=== PATIENT | female | born 1940 | race Two or more races ===

== ENCOUNTER 2018-06-08 11:11 | Outpatient (CLI) | payer OTHER | END 2018-06-08 11:31 | disposition home or self-care (01) | LOC: RAD 501 11:11 | DX: I11.9 Hypertensive heart disease without heart failure (principal); I87.2 Venous insufficiency (chronic) (peripheral); E03.8 Other specified hypothyroidism; E11.59 Type 2 diabetes mellitus with other circulatory complications; E78.00 Pure hypercholesterolemia, unspecified; N18.1 Chronic kidney disease, stage 1 ==

== ENCOUNTER 2018-11-12 08:59 | Outpatient (CLI) | payer OTHER | END 2018-11-12 09:05 | disposition home or self-care (01) | LOC: LAB 08:59 | DX: E03.8 Other specified hypothyroidism (principal); I13.10 Hypertensive heart and chronic kidney disease without heart failure, with stage 1 through stage 4 chronic kidney disease, or unspecified chronic kidney disease; N18.2 Chronic kidney disease, stage 2 (mild); E55.9 Vitamin D deficiency, unspecified; H40 Glaucoma; E78.00 Pure hypercholesterolemia, unspecified; F15.20 Other stimulant dependence, uncomplicated ==

== ENCOUNTER → 2019-07-06 07:10 | Outpatient (CLI) | payer OTHER | END | disposition home or self-care (01) | LOC: LAB 07:10 | DX: N18.2 Chronic kidney disease, stage 2 (mild) (principal); I13.10 Hypertensive heart and chronic kidney disease without heart failure, with stage 1 through stage 4 chronic kidney disease, or unspecified chronic kidney disease; E11.59 Type 2 diabetes mellitus with other circulatory complications; I87.2 Venous insufficiency (chronic) (peripheral); E78.00 Pure hypercholesterolemia, unspecified; M81.0 Age-related osteoporosis without current pathological fracture; D51.3 Other dietary vitamin B12 deficiency anemia; E46 Unspecified protein-calorie malnutrition ==

== ENCOUNTER 2019-07-22 08:35 | Outpatient (CLI) | payer OTHER | END 2019-07-22 08:44 | disposition home or self-care (01) | LOC: LAB 08:35 | DX: D51.3 Other dietary vitamin B12 deficiency anemia (principal); I13.10 Hypertensive heart and chronic kidney disease without heart failure, with stage 1 through stage 4 chronic kidney disease, or unspecified chronic kidney disease; N18.2 Chronic kidney disease, stage 2 (mild); E46 Unspecified protein-calorie malnutrition; E78.00 Pure hypercholesterolemia, unspecified; E11.59 Type 2 diabetes mellitus with other circulatory complications; I87.2 Venous insufficiency (chronic) (peripheral) ==

== ENCOUNTER 2022-07-03 11:02 | Outpatient (CLI) | payer OTHER | END 2022-07-03 11:11 | disposition home or self-care (01) | LOC: MAMO-SONO 11:02 | PROVIDERS: ATTEND Internal Medicine | DX: Z12.31 Encounter for screening mammogram for malignant neoplasm of breast (principal) ==

== ENCOUNTER 2024-10-26 10:00 | Outpatient (CLI) | payer OTHER | END 2024-10-26 10:10 | disposition home or self-care (01) | LOC: MAMO-SONO 10:00 | PROVIDERS: ATTEND Internal Medicine | DX: Z12.31 Encounter for screening mammogram for malignant neoplasm of breast (principal); E78.00 Pure hypercholesterolemia, unspecified; M85.80 Other specified disorders of bone density and structure, unspecified site; I13.10 Hypertensive heart and chronic kidney disease without heart failure, with stage 1 through stage 4 chronic kidney disease, or unspecified chronic kidney disease; N18.2 Chronic kidney disease, stage 2 (mild); E11.22 Type 2 diabetes mellitus with diabetic chronic kidney disease; I11.9 Hypertensive heart disease without heart failure; H40 Glaucoma ==